=== PATIENT | female | born 1940 | race Caucasian/White ===

== ENCOUNTER 2020-09-19 14:51 | Inpatient (IN) ==
[2020-09-19] MEDS ORDERED: *HR* Dextrose 50 % in Water (Vial) 50 ML VIAL IVP PRN (17:16)
[2020-09-19] MEDS ORDERED: D5% in Water 1,000 ML IVC PRN (17:16)
[2020-09-19] MEDS ORDERED: Dextrose Gel 15 GM/37.5 ML TUBE PO PRN ×2 (17:16)
[2020-09-19] MEDS: Insulin LISPRO 300 UNITS/3 ML VIAL SUBQ SCH (20:47)
[2020-09-19] MEDS: Apixaban 5 MG TABLET PO SCH (20:47)
[2020-09-19] MEDS: Gabapentin 300 MG CAPSULE PO SCH (20:47)
[2020-09-19] MEDS: *HR* OxyCODONE/APAP 10/325 TABLET PO PRN (21:08)
[2020-09-20] MEDS: *HR* OxyCODONE/APAP 10/325 TABLET PO PRN ×4 (04:04→23:31)
[2020-09-20 05:58] LABS: Basophils % 0.3 %; Eosinophils # 0.1 K/mcL (0.0-0.6); Eosinophils % 2.1 %; Hematocrit 28.1 % (35.3-44.9); Hemoglobin 8.4 g/dL (11.5-15.4); Immature Granulocytes % 0.2 % (0-4); Lymphocytes % 33.6 %; Mean Corpuscular HGB Conc 29.9 g/dL (31.6-35.5); Mean Corpuscular Hemoglobin 25.1 pg (28.0-33.3); Mean Corpuscular Volume 83.9 fL (83.0-100.0); Mean Platelet Volume 10.3 fL (9.4-12.4); Monocytes # 0.4 K/mcL (0.0-1.3); Monocytes % 7.2 %; Neutrophils # 3.4 K/mcL (1.6-8.9); Platelet Count 326 K/mcL (140-400); Red Blood Count 3.35 M/mcL (3.82-4.97); Segmented Neutrophils % 56.6 %; White Blood Count 6.1 K/mcL (4.3-11.1)
[2020-09-20 06:11] LABS: Calcium 9.5 mg/dL (8.6-10.3); Potassium 4.1 mEq/L (3.5-5.1)
[2020-09-20] MEDS ORDERED: hydrALAZINE 25 MG TABLET PO PRN (09:43)
[2020-09-20] MEDS: Apixaban 5 MG TABLET PO SCH ×2 (09:44→20:55)
[2020-09-20] MEDS: Insulin LISPRO 300 UNITS/3 ML VIAL SUBQ SCH ×4 (09:44→20:55)
[2020-09-20] MEDS: lisinopriL 20 MG TABLET PO SCH (09:45)
[2020-09-20] MEDS: amLODIPine 5 MG TABLET PO SCH (09:45)
[2020-09-20] MEDS: Gabapentin 300 MG CAPSULE PO SCH ×3 (09:45→20:55)
[2020-09-20] MEDS: *HR* Repaglinide 1 MG TABLET PO SCH ×2 (09:45→17:37)
[2020-09-20] MEDS: Cyanocobalamin (B-12) 1,000 MCG TABLET PO SCH (09:45)
[2020-09-20] MEDS: (Linagliptin [Tradjenta] 5 MG Tablet) PO SCH (09:46)
[2020-09-20] MEDS: JARDIANCE 10MG PO SCH (09:46)
[2020-09-20] MEDS: polyethylene glycoL 3350 17 GM POWD.PACK PO PRN (10:24)
[2020-09-21] MEDS: Cyanocobalamin (B-12) 1,000 MCG TABLET PO SCH (08:41)
[2020-09-21] MEDS: Apixaban 5 MG TABLET PO SCH ×2 (08:41→22:21)
[2020-09-21] MEDS: *HR* Repaglinide 1 MG TABLET PO SCH ×2 (08:41→17:14)
[2020-09-21] MEDS: Gabapentin 300 MG CAPSULE PO SCH ×3 (08:41→22:21)
[2020-09-21] MEDS: Folic Acid 1 MG TABLET PO SCH (08:41)
[2020-09-21] MEDS: amLODIPine 5 MG TABLET PO SCH (08:42)
[2020-09-21] MEDS: Insulin LISPRO 300 UNITS/3 ML VIAL SUBQ SCH ×4 (08:42→22:21)
[2020-09-21] MEDS: lisinopriL 20 MG TABLET PO SCH (08:42)
[2020-09-21] MEDS: *HR* OxyCODONE/APAP 10/325 TABLET PO PRN ×2 (10:01→17:18)
[2020-09-21 11:00] LABS: Estimated Average Glucose 180 mg/dl; Hemoglobin A1C 7.9 %
[2020-09-21] MEDS: JARDIANCE 10MG PO SCH (11:41)
[2020-09-21] MEDS: (Linagliptin [Tradjenta] 5 MG Tablet) PO SCH (11:41)
[2020-09-21] MEDS: polyethylene glycoL 3350 17 GM POWD.PACK PO PRN (17:18)
[2020-09-22] MEDS: *HR* Repaglinide 1 MG TABLET PO SCH ×2 (07:57→17:12)
[2020-09-22] MEDS: Apixaban 5 MG TABLET PO SCH ×2 (07:58→20:08)
[2020-09-22] MEDS: amLODIPine 5 MG TABLET PO SCH (07:58)
[2020-09-22] MEDS: Cyanocobalamin (B-12) 1,000 MCG TABLET PO SCH (07:58)
[2020-09-22] MEDS: Folic Acid 1 MG TABLET PO SCH (07:58)
[2020-09-22] MEDS: Gabapentin 300 MG CAPSULE PO SCH ×3 (07:58→20:09)
[2020-09-22] MEDS: (Linagliptin [Tradjenta] 5 MG Tablet) PO SCH (07:58)
[2020-09-22] MEDS: JARDIANCE 10MG PO SCH (07:58)
[2020-09-22] MEDS: lisinopriL 20 MG TABLET PO SCH (07:58)
[2020-09-22] MEDS: Insulin LISPRO 300 UNITS/3 ML VIAL SUBQ SCH ×4 (08:11→21:22)
[2020-09-22 09:51] LABS: Basophils % 0.5 %; Eosinophils # 0.1 K/mcL (0.0-0.6); Eosinophils % 1.9 %; Hematocrit 31.3 % (35.3-44.9); Hemoglobin 9.3 g/dL (11.5-15.4); Immature Granulocytes % 0.3 % (0-4); Lymphocytes # 1.6 K/mcL (0.6-4.6); Lymphocytes % 21.2 %; Mean Corpuscular HGB Conc 29.7 g/dL (31.6-35.5); Mean Corpuscular Hemoglobin 25.1 pg (28.0-33.3); Mean Corpuscular Volume 84.6 fL (83.0-100.0); Mean Platelet Volume 9.9 fL (9.4-12.4); Monocytes # 0.4 K/mcL (0.0-1.3); Monocytes % 4.7 %; Neutrophils # 5.3 K/mcL (1.6-8.9); Platelet Count 381 K/mcL (140-400); Red Cell Distribution Width 17.4 % (11.5-14.5); Segmented Neutrophils % 71.4 %; White Blood Count 7.4 K/mcL (4.3-11.1)
[2020-09-22 10:10] LABS: Calcium 9.9 mg/dL (8.6-10.3); Potassium 4.3 mEq/L (3.5-5.1)
[2020-09-22] MEDS: *HR* OxyCODONE/APAP 10/325 TABLET PO PRN ×2 (11:38→20:24)
[2020-09-23 07:08] VITALS: BP 144/76
[2020-09-23] MEDS: amLODIPine 5 MG TABLET PO SCH (08:19)
[2020-09-23] MEDS: Cyanocobalamin (B-12) 1,000 MCG TABLET PO SCH (08:20)
[2020-09-23] MEDS: lisinopriL 20 MG TABLET PO SCH (08:20)
[2020-09-23] MEDS: Apixaban 5 MG TABLET PO SCH (08:20)
[2020-09-23] MEDS: Folic Acid 1 MG TABLET PO SCH (08:20)
[2020-09-23] MEDS: Gabapentin 300 MG CAPSULE PO SCH (08:20)
[2020-09-23] MEDS: JARDIANCE 10MG PO SCH (08:21)
[2020-09-23] MEDS: (Linagliptin [Tradjenta] 5 MG Tablet) PO SCH (08:21)
[2020-09-23] MEDS: *HR* Repaglinide 1 MG TABLET PO SCH (08:21)
[2020-09-23] MEDS: Insulin LISPRO 300 UNITS/3 ML VIAL SUBQ SCH (08:23)
[2020-09-23] MEDS: *HR* OxyCODONE/APAP 10/325 TABLET PO PRN (09:00)
== END 2020-09-23 14:53 | disposition home or self-care (01) | DRG 945 ==
LOC: INPPIK 18:50
PROVIDERS: ADMIT Family Medicine; ATTEND Family Medicine